=== PATIENT | male | born 1970 | race Caucasian/White ===

== ENCOUNTER 2017-08-11 15:04 | Emergency (ER) | payer OTHER ==
[2017-08-11 15:08] VITALS: O2SAT 97
--- NOTE | 2017-08-11 15:50 | EDPHY ---
H & P Time Seen by Provider: 08/11/17 15:24 HPI/ROS: CHIEF COMPLAINT: Right great toe injury HISTORY OF PRESENT ILLNESS: 46-year-old male presents to the emergency department by private vehicle with 2 day history of right great toe pain. The patient was hiking and accidentally kicked a rock with his right great toe and now has pain at the 1st MTP joint of the right foot. He is able to bear weight however this does cause pain. He has applied ice and kept elevated. He is concerned because he still cannot bear weight normally because of the pain. ROS: Denies numbness or tingling in his toes, pain in his right ankle or calf. Past Medical/Surgical History: Negative Social History: Smoking Status: Never smoked Physical Exam: On examination the patient has swelling noted to the right 1st MTP joint. Reproducible pain with palpation at the 1st MTP joint. He has limited flexion of the MTP joint secondary to pain. He has normal sensation to light touch with normal 2 point discrimination. There is no abrasions noted. No puncture wounds. No rotational deformities noted. The other toes do not appear injured. No ecchymosis. Normal sensation to light touch with normal 2 point discrimination. Constitutional: Initial Vital Signs Temperature (C) 36.8 C 08/11/17 15:06 Heart Rate 54 L 08/11/17 15:06 Respiratory Rate 20 08/11/17 15:06 Blood Pressure 130/87 H 08/11/17 15:06 O2 Sat (%) 97 08/11/17 15:06 O2 Delivery Mode Room Air Allergies/Adverse Reactions: No Known Allergies Allergy (Verified 08/11/17 15:06) Home Medications: Medication Instructions Recorded None 01/31/10 MDM/Departure - MDM Imaging: I viewed and interpreted images myself Procedures: Patient's toes were tyron-taped and postop shoe applied. This was examined post application in good placement with normal FOAM CHARGER. ED Course/Re-evaluation: 46-year-old male presents to the emergency department with right great toe injury. X-rays reveal no fractures. This was interpreted by myself. Radiology interpretation to follow. His toes were tyron-taped, he was placed in a postop shoe, and he was given orthopedic referral. - Depart Disposition: Home, Routine, Self-Care Clinical Impression: Contusion of right great toe without damage to nail Qualifiers: Encounter type: initial encounter Qualified Code(s): S90.111A - Contusion of right great toe without damage to nail, initial encounter Condition: Good Instructions: Contusion in Adults (ED) Additional Instructions: Tyron tape toes for comfort and support. Postop shoe for comfort and support to help minimize flexion at the right great toe. Ibuprofen 600mg every 8 hours for pain as directed. Referrals: Ellen Walls MD [Primary Care Provider] - As per Instructions Larry Hackett MD [Medical Doctor] - 5-7 days, call for appt. (Orthopedic surgeon on-call)
[2017-08-11 16:04] VITALS: BP 108/75; PULSE 57; RESP 18; TEMP 98.6
== END 2017-08-11 16:00 | disposition home or self-care (01) ==
DX: S90.111A Contusion of right great toe without damage to nail, initial encounter (principal); W22.8XXA Striking against or struck by other objects, initial encounter; Y99.8 Other external cause status; Y93.01 Activity, walking, marching and hiking
CPT/HCPCS: L4386